=== PATIENT | male | born 1950 | race Caucasian/White ===

== ENCOUNTER 2019-10-03 00:30 | Day surgery (SDC) | payer MEDICARE, SELFPAY ==
[2019-10-03 08:10] VITALS: BP 168/106; PULSE 90; RESP 16; TEMP 36.5; O2SAT 94
[2019-10-03 08:36] VITALS: BMI 26.9
--- NOTE | 2019-10-03 10:18 | WPDGICN ---
Assessment and Plan Additional Plan This is a 69-year-old white male patient I am asked to see with G-tube malfunction. Patient has a history of PEG tube placed initially after a stroke in 2016. At home the plastic port of the G-tube has become deteriorated and begun to fall apart presents today for repair replacement of his G-tube. Past medical history is significant for pulmonary embolus. He subsequently had a clot. Medications at home include baclofen atorvastatin, amlodipine, aspirin, fluoxetine, Colace, insulin, gabapentin, tramadol, and Phenergan. Family history is noncontributory. Patient reports allergies to sulfa Medications. Physical exam reveals that he requires a wheelchair. He has left hemiparesis. HEENT exam reveals a deformity on the right forehead. He is anicteric. Lungs are clear to auscultation and percussion. Heart is without murmur or extra sounds. Abdomen is soft nontender with no hepatosplenomegaly. Peg tube in left upper quadrant reveals the G-tube is deteriorated and is no longer functioning. Impression 1. G-tube malfunction. For this reason old G-tube was removed. Replaced with a 16 Lithuanian replacement PEG tube without difficulty. Gastric contents were aspirated from the G-tube and appears to be in appropriate position. Plan is with the new G-tube replacement to resume tube feedings. Patient is advised to replace G-tube under 1 year basis. Or as needed. GI Consult Note Consult date/time: 10/03/19 10:18 HPI: Alberto Gilman is a 69 year old male Meds Home Medications and Allergies Home Medications Medication Instructions Recorded Confirmed Type acetaminophen [Tylenol] 325 mg PO ONCE PRN 10/03/19 10/03/19 History amlodipine 10 mg PO DAILY 10/03/19 10/03/19 History ascorbic acid (vitamin C) [Vitamin 1,000 mg PO Q12H 10/03/19 10/03/19 History C] aspirin 325 mg PO DAILY 10/03/19 10/03/19 History atorvastatin 80 mg PO DAILY 10/03/19 10/03/19 History baclofen 10 mg PO TID 10/03/19 10/03/19 History chlorpheniramine-acetaminophen 1 tablet PO Q4-6H PRN 10/03/19 10/03/19 History [Coricidin HBP Cold and Flu] cholecalciferol (vitamin D3) 50 mcg PO DAILY 10/03/19 10/03/19 History [Vitamin D3] coQ10 (ubiquinol) 200 mg PO DAILY 10/03/19 10/03/19 History docusate sodium [Stool Softener] 100 mg PO BID 10/03/19 10/03/19 History escitalopram oxalate 10 mg PO DAILY 10/03/19 10/03/19 History gabapentin 300 mg PO HS 10/03/19 10/03/19 History insulin degludec [Tresiba 200 unit SUBCUT DAILY 10/03/19 10/03/19 History FlexTouch U-200] levetiracetam 1,000 mg PO BID 10/03/19 10/03/19 History loratadine 10 mg PO DAILY 10/03/19 10/03/19 History losartan 100 mg PO DAILY 10/03/19 10/03/19 History magnesium 200 mg PO DAILY 10/03/19 10/03/19 History polyethylene glycol 3350 17 g FEEDING TUBE DAILY 10/03/19 10/03/19 History promethazine 12.5 mg FEEDING TUBE PRN PRN 10/03/19 10/03/19 History tramadol 50 mg PO PRN PRN 10/03/19 10/03/19 History Allergies Allergy/AdvReac Type Severity Reaction Status Date / Time sulfamethoxazole Allergy Intermediate RASH Verified 10/03/19 09:57 melon Allergy Mild swelling Verified 10/03/19 09:57 Pecan Allergy Mild swelling Uncoded 10/03/19 09:57 nutiifac zx AdvReac Mild nausea? Uncoded 10/03/19 09:57 Vital Signs Vital Signs - 24 hr 10/03/19 08:10 Temperature 36.5 C Pulse Rate 90 Respiratory Rate 16 Blood Pressure 168/106 H Pulse Oximetry 94
--- NOTE | 2019-10-10 10:11 | PM.OP ---
Procedure Note - Brief Procedure Note - Brief Date of procedure: 10/10/19 Pre-op diagnosis: Malfunctioning G-Tube Surgeon: Lakhwinder Vera MD 09/28/2019 date of procedure. Procedure change PEG tube. Preop diagnosis malfunctioning G-tube. Postprocedure diagnosis G-tube replaced. Family reports G-tube deteriorated no longer functioning plastic is falling off the tip of the PEG tube. Abdominal exam benign and unremarkable. Peg tube site healing ?adequately. Old PEG tube internal balloon is deflated. Old PEG tube was withdrawn from the abdomen. A new 16 [place]alan replacement PEG tube is placed through the gastrocutaneous fistula without difficulty. Gastric contents aspirated. To confirm in appropriate position. Plan is to resume tube feedings in discharge. Patient to follow up with primary care service. Anticipate follow-up PEG tube in an annual basis unless it deteriorates sooner than this.
== END 2019-10-03 00:31 | disposition home or self-care (01) ==
PROVIDERS: PCP Internal Medicine; Visit Provider Internal Medicine Gastroenterology
PROC: 0DH63UZ Insertion of Feeding Device into Stomach, Percutaneous Approach (ICD-10-PCS; CPT 43246; principal; 2019-10-03 09:30)
DX: K94.23 Gastrostomy malfunction (principal)
CPT/HCPCS: 99211; G0463

== ENCOUNTER 2020-10-05 10:34 | Day surgery (SDC) | payer MEDICARE, SELFPAY ==
[2020-10-05 10:45] VITALS: BP 158/96; PULSE 99; RESP 17; TEMP 36; O2SAT 99
--- NOTE | 2020-10-05 11:04 | ED.GENADULT ---
HPI - General Adult General Chief complaint: Unspecified Stated complaint: feeding tube came out Time Seen by Provider: 10/05/20 10:54 Source: patient Mode of arrival: wheelchair Limitations: no limitations History of Present Illness HPI narrative: A 70-year-old male comes into the emergency department today with complaints of a dislodged G-tube. Patient reports a history of a stroke leaving him unable to swallow. Patient had to have the G-tube placed for this. He notes that at about 10 AM this morning it came dislodged. His states that the bubble that is usually present deflated and this is how it came out. Related Data Home Medications Medication Instructions Recorded Confirmed acetaminophen [Tylenol] 325 mg PO ONCE PRN 10/03/19 10/03/19 amlodipine 10 mg PO DAILY 10/03/19 10/03/19 ascorbic acid (vitamin C) [Vitamin 1,000 mg PO Q12H 10/03/19 10/03/19 C] aspirin 325 mg PO DAILY 10/03/19 10/03/19 atorvastatin 80 mg PO DAILY 10/03/19 10/03/19 baclofen 10 mg PO TID 10/03/19 10/03/19 chlorpheniramine-acetaminophen 1 tablet PO Q4-6H PRN 10/03/19 10/03/19 [Coricidin HBP Cold and Flu] cholecalciferol (vitamin D3) 50 mcg PO DAILY 10/03/19 10/03/19 [Vitamin D3] coQ10 (ubiquinol) 200 mg PO DAILY 10/03/19 10/03/19 docusate sodium [Stool Softener] 100 mg PO BID 10/03/19 10/03/19 escitalopram oxalate 10 mg PO DAILY 10/03/19 10/03/19 gabapentin 300 mg PO HS 10/03/19 10/03/19 insulin degludec [Tresiba 200 unit SUBCUT DAILY 10/03/19 10/03/19 FlexTouch U-200] levetiracetam 1,000 mg PO BID 10/03/19 10/03/19 loratadine 10 mg PO DAILY 10/03/19 10/03/19 losartan 100 mg PO DAILY 10/03/19 10/03/19 magnesium 200 mg PO DAILY 10/03/19 10/03/19 polyethylene glycol 3350 17 g FEEDING TUBE DAILY 10/03/19 10/03/19 promethazine 12.5 mg FEEDING TUBE PRN PRN 10/03/19 10/03/19 tramadol 50 mg PO PRN PRN 10/03/19 10/03/19 Allergies Allergy/AdvReac Type Severity Reaction Status Date / Time sulfamethoxazole Allergy Intermediate RASH Verified 10/05/20 12:21 melon Allergy Mild swelling Verified 10/05/20 12:21 Pecan Allergy Mild swelling Uncoded 10/05/20 12:21 nutiifac zx AdvReac Mild nausea? Uncoded 10/05/20 12:21 Review of Systems Review of Systems: Narrative: CONSTITUTIONAL: Denies fever, chills, or sweats. EYES: Denies visual changes, redness, or discharge. ENT: Denies rhinorrhea, congestion, sore throat, or otalgia. CARDIOVASCULAR: Denies chest pain, palpitations, or edema. RESPIRATORY: Denies cough or dyspnea. GASTROINTESTINAL: Denies abdominal pain, nausea, vomiting, or diarrhea. GENITOURINARY: Denies dysuria or hematuria. SKIN: Denies rash or itching. MUSCULOSKELETAL: Denies back pain, joint pain, or myalgia. NEUROLOGIC: Denies headache, numbness, dizziness, or weakness. PSYCHIATRIC: Denies anxiety or depression. [facility] Social History Social History Gender identity (if verbalized by the patient): Male Exam Narrative: Exam Narrative: GENERAL: Well-appearing, well-nourished, and in no acute distress. HEAD: Normocephalic, atraumatic. EYES: PERRLA and EOMI. ENT: Nares clear, no rhinorrhea or epistaxis. Mucous membranes moist. NECK: Supple. No adenopathy or masses. No carotid bruits or JVD CHEST: Clear to auscultation. No respiratory distress. No wheezes rales or rhonchi HEART: Regular rate and rhythm. No murmur heard. Normal peripheral pulses. ABDOMEN: Soft, nontender, nondistended, normal active bowel sounds. EXTREMITIES: Normal range of motion. No edema. SKIN: Warm, dry, no rash. NEURO: No focal deficits. Alert and oriented x3. PSYCH: Normal mood and affect. Course Reevaluation(s) Reevaluation #1: Attempted placement of G-tube. Unfortunately 3 attempts were unsuccessful. I was able to get the G-tube in approximately 2 cm but it would not go all the way in. For fear of creating a false lumen I did not want to push any harder. We will consult with general surgery. Time
[2020-10-05] MEDS: LIDOCAINE HCL 2% GEL UROJET 10 ML PKG MUCOUS MEM (11:32)
[2020-10-05 12:42] VITALS: BMI 27.4
[2020-10-05 12:49] LABS: Glucose Point of Care 361 (65-105)
--- NOTE | 2020-10-05 12:50 | WPDANESEPPF ---
Anes - Initial Pre Proc Eval Procedure: Operation Date: 10/05/20 13:00 Proposed Procedures p Esophagogastroduodenoscopy - Skyler Del Toro MD s Percutaneous Endoscopic Gastrostomy - Skyler Del Toro MD Date/Time: 10/05/20 12:50 Pre Op Diagnosis: feeding tube came out Patient Data Age: 70 Gender: M Height: 6 ft 2 in Weight: 97 kg Last Vital Signs Temp 36.0 C L 10/05/20 10:45 Pulse 99 10/05/20 10:45 Resp 17 10/05/20 10:45 BP 158/96 H 10/05/20 10:45 Pulse Ox 99 10/05/20 10:45 Allergies Allergy/AdvReac Type Severity Reaction Status Date / Time sulfamethoxazole Allergy Intermediate RASH Verified 10/05/20 12:21 melon Allergy Mild swelling Verified 10/05/20 12:21 Pecan Allergy Mild swelling Uncoded 10/05/20 12:21 nutiifac zx AdvReac Mild nausea? Uncoded 10/05/20 12:21 Home Medications Medication Instructions Recorded Confirmed Type acetaminophen [Tylenol] 325 mg PO ONCE PRN 10/03/19 10/03/19 History amlodipine 10 mg PO DAILY 10/03/19 10/03/19 History ascorbic acid (vitamin C) [Vitamin 1,000 mg PO Q12H 10/03/19 10/03/19 History C] aspirin 325 mg PO DAILY 10/03/19 10/03/19 History atorvastatin 80 mg PO DAILY 10/03/19 10/03/19 History baclofen 10 mg PO TID 10/03/19 10/03/19 History cholecalciferol (vitamin D3) 50 mcg PO DAILY 10/03/19 10/03/19 History [Vitamin D3] coQ10 (ubiquinol) 200 mg PO DAILY 10/03/19 10/03/19 History docusate sodium [Stool Softener] 100 mg PO BID 10/03/19 10/03/19 History escitalopram oxalate 10 mg PO DAILY 10/03/19 10/03/19 History gabapentin 300 mg PO HS 10/03/19 10/03/19 History insulin degludec [Tresiba 200 unit SUBCUT DAILY 10/03/19 10/03/19 History FlexTouch U-200] levetiracetam 1,000 mg PO BID 10/03/19 10/03/19 History loratadine 10 mg PO DAILY 10/03/19 10/03/19 History losartan 100 mg PO DAILY 10/03/19 10/03/19 History magnesium 200 mg PO DAILY 10/03/19 10/03/19 History polyethylene glycol 3350 17 g FEEDING TUBE DAILY 10/03/19 10/03/19 History promethazine 12.5 mg FEEDING TUBE PRN PRN 10/03/19 10/03/19 History tramadol 50 mg PO PRN PRN 10/03/19 10/03/19 History insulin aspart U-100 [Novolog 40 unit SUBCUT TID 10/05/20 10/05/20 History Flexpen U-100 Insulin] Laboratory Tests 10/05/20 12:46 POC Capillary Glucose 361 mg/dl H mg/dl (65-105) Patient hx anesthesia problems: none Family hx anesthesia problems: none [facility] Past Medical History Medical History (Updated 10/05/20 @ 12:51 by Marlo Celis MD) Diabetes History of CVA (cerebrovascular accident) HTN (hypertension) Seizures Surgical History Surgical History (Updated 10/05/20 @ 12:51 by Marlo Celis MD) H/O craniotomy Social History Social History Gender identity (if verbalized by the patient): Male Anes - Eval Final PreProcedure Day of Procedure 10/05/20 12:50 Patient weight: overweight Heart: regular rate and rhythm Lungs: clear to auscultation Airway: Mallampati scale class II Neurological: alert and oriented Last oral intake: >/= 8 hours ASA classification: III Emergent: no Anesthetic plan: proceed Anesthesia type and monitoring: general GIVS and standard monitoring Informed Consent: The patient's anesthetic plan and its attendant risks and benefits were discussed with the patient/family/POA. Questions were solicited and answers provided to the satisfaction of the patient/family/POA.
[2020-10-05] MEDS: LACTATED RINGERS 1,000 ML 150 ML IV CONT (13:00)
--- NOTE | 2020-10-05 14:01 | PM.HPGS ---
History of Present Illness History of Present Illness Consent: Risks, benefits, and alternatives have been discussed and questions answered. Patient agrees to proceed with procedure. Chief complaint: feeding tube came out Narrative: Alberto Gilman is a 70 year old male who came to ER after dislodged G-tube which was replaced several months ago by Dr Vera (16 Fr size). Patient reports a history of a stroke leaving him unable to swallow. He says that can swallow pills. Review of Systems Constitutional: Constitutional: Denies headache(s) and Denies weakness Eyes: Eyes: Denies blurry vision ENT: Reports Normal hearing present, Denies headache(s) and Denies neck pain Cardiovascular: Cardiovascular: Denies chest pain and Denies dyspnea Respiratory: Respiratory: Denies dyspnea Gastrointestinal: Gastrointestinal: Reports no additional gastrointestinal complaints Genitourinary: Genitourinary: Denies dysuria Musculoskeletal: Musculoskeletal: Denies neck pain Integumentary/Breasts: Skin/Breast: Denies dry skin Neurologic: Reports Normal hearing present, Denies headache(s) and Denies weakness Psychiatric: Psychiatric: Denies anxiety Endocrine: Endocrine: Denies change in body appearance Hematologic/Lymphatic: Hematologic/Lymphatic: Denies easy bleeding Allergic/Immunologic: Allergic/Immunologic: Denies urticaria PMFSH Past Medical History Medical History (Updated 10/05/20 @ 12:51 by Marlo Celis MD) Diabetes History of CVA (cerebrovascular accident) HTN (hypertension) Seizures Surgical History Surgical History (Updated 10/05/20 @ 12:51 by Marlo Celis MD) H/O craniotomy Social History Social History Gender identity (if verbalized by the patient): Male Meds Home Medications and Allergies Home Medications Medication Instructions Recorded Confirmed Type acetaminophen [Tylenol] 325 mg PO ONCE PRN 10/03/19 10/05/20 History amlodipine 10 mg PO DAILY 10/03/19 10/05/20 History ascorbic acid (vitamin C) [Vitamin 1,000 mg PO Q12H 10/03/19 10/05/20 History C] aspirin 325 mg PO DAILY 10/03/19 10/05/20 History atorvastatin 80 mg PO DAILY 10/03/19 10/05/20 History baclofen 10 mg PO TID 10/03/19 10/05/20 History cholecalciferol (vitamin D3) 50 mcg PO DAILY 10/03/19 10/05/20 History [Vitamin D3] coQ10 (ubiquinol) 200 mg PO DAILY 10/03/19 10/05/20 History docusate sodium [Stool Softener] 100 mg PO BID 10/03/19 10/05/20 History escitalopram oxalate 10 mg PO DAILY 10/03/19 10/05/20 History gabapentin 300 mg PO HS 10/03/19 10/05/20 History insulin degludec [Tresiba 200 unit SUBCUT DAILY 10/03/19 10/05/20 History FlexTouch U-200] levetiracetam 1,000 mg PO BID 10/03/19 10/05/20 History loratadine 10 mg PO DAILY 10/03/19 10/05/20 History losartan 100 mg PO DAILY 10/03/19 10/05/20 History magnesium 200 mg PO DAILY 10/03/19 10/05/20 History polyethylene glycol 3350 17 g FEEDING TUBE DAILY 10/03/19 10/05/20 History promethazine 12.5 mg FEEDING TUBE PRN PRN 10/03/19 10/05/20 History tramadol 50 mg PO PRN PRN 10/03/19 10/05/20 History insulin aspart U-100 [Novolog 40 unit SUBCUT TID 10/05/20 10/05/20 History Flexpen U-100 Insulin] Allergies Allergy/AdvReac Type Severity Reaction Status Date / Time sulfamethoxazole Allergy Intermediate RASH Verified 10/05/20 12:21 melon Allergy Mild swelling Verified 10/05/20 12:21 Pecan Allergy Mild swelling Uncoded 10/05/20 12:21 nutiifac zx AdvReac Mild nausea? Uncoded 10/05/20 12:21 Vital Signs Vital Signs - 24 hr 10/05/20 10:45 Temperature 96.8 F L Pulse Rate 99 Respiratory Rate 17 Blood Pressure 158/96 H Pulse Oximetry 99 Exam Const: General: comfortable and no acute distress HENMT: General nose exam: Normal nares present Eyes: General: appearance normal, both eyes and all related structures Neck: Neck: no JVD Resp: Auscultation: clear to auscultation bilaterally Cardio:
[2020-10-05] MEDS: BENZOCAINE (*SP) 60 ML SPRAY CAN (HURRICAINE) 1 SPRAY MUCOUS MEM (14:10)
[2020-10-05 14:25] VITALS: BP 125/76; PULSE 79; RESP 17; O2SAT 92
[2020-10-05 14:35] VITALS: BP 115/70; PULSE 77; RESP 18; O2SAT 91
[2020-10-05 14:45] VITALS: BP 150/86; PULSE 81; RESP 18; O2SAT 93
== END 2020-10-05 15:07 | disposition home or self-care (01) ==
LOC: ANHED 12:31 → ANHSURGERY 12:55
PROVIDERS: Emergency Provider Emergency Medicine; PCP Internal Medicine; Visit Provider Internal Medicine Gastroenterology
PROC: 0DJ08ZZ Inspection of Upper Intestinal Tract, Via Natural or Artificial Opening Endoscopic (ICD-10-PCS; CPT 43235; principal; 2020-10-05 13:00)
PROC: 0DH63UZ Insertion of Feeding Device into Stomach, Percutaneous Approach (ICD-10-PCS; CPT 43246; 2020-10-05 13:00)
DX: T85.528A Displacement of other gastrointestinal prosthetic devices, implants and grafts, initial encounter (principal); I69.391 Dysphagia following cerebral infarction; R13.10 Dysphagia, unspecified; E11.9 Type 2 diabetes mellitus without complications; I10 Essential (primary) hypertension; G40.909 Epilepsy, unspecified, not intractable, without status epilepticus; Z79.4 Long term (current) use of insulin; Z79.82 Long term (current) use of aspirin
CPT/HCPCS: 43246; 82948; 99285; J0690; J2704; J7120

== ENCOUNTER 2021-08-05 02:31 | Day surgery (SDC) | payer MEDICARE, SELFPAY ==
[2021-07-31 12:23] VITALS: BMI 28.3
--- NOTE | 2021-08-05 10:58 | WPDANESEPPF ---
Anes - Initial Pre Proc Eval Procedure: Operation Date: 08/05/21 11:30 Proposed Procedures p Removal & Replacement of G-Tube - Lakhwinder Vera MD Date/Time: 08/05/21 10:58 Surgeon: Lakhwinder Vera MD Pre Op Diagnosis: malfunctioning g tube Patient Data Age: 71 Gender: M Height: 1.88 m Weight: 100 kg Allergies Allergy/AdvReac Type Severity Reaction Status Date / Time sulfamethoxazole Allergy Intermediate RASH Verified 08/05/21 10:39 melon Allergy Mild swelling Verified 08/05/21 10:39 Pecan Allergy Mild swelling Uncoded 10/05/20 12:21 nutiifac zx AdvReac Mild nausea? Uncoded 10/05/20 12:21 Home Medications Medication Instructions Recorded Confirmed Type acetaminophen [Tylenol] 325 mg PO ONCE PRN 10/03/19 07/31/21 History amlodipine 10 mg PO DAILY 10/03/19 07/31/21 History ascorbic acid (vitamin C) [Vitamin 1,000 mg PO Q12H 10/03/19 07/31/21 History C] aspirin 325 mg PO DAILY 10/03/19 07/31/21 History atorvastatin 80 mg PO DAILY 10/03/19 07/31/21 History baclofen 10 mg PO TID 10/03/19 07/31/21 History cholecalciferol (vitamin D3) 100 mcg PO DAILY 10/03/19 07/31/21 History [Vitamin D3] docusate sodium [Stool Softener] 100 mg PO BID 10/03/19 07/31/21 History escitalopram oxalate 10 mg PO DAILY 10/03/19 07/31/21 History gabapentin 300 mg PO HS 10/03/19 07/31/21 History insulin degludec [Tresiba 56 unit SUBCUT HS 10/03/19 07/31/21 History FlexTouch U-200] levetiracetam 1,000 mg PO BID 10/03/19 07/31/21 History loratadine 10 mg PO DAILY 10/03/19 07/31/21 History losartan 100 mg PO DAILY 10/03/19 07/31/21 History polyethylene glycol 3350 17 g FEEDING TUBE DAILY 10/03/19 07/31/21 History promethazine 12.5 mg FEEDING TUBE PRN PRN 10/03/19 07/31/21 History tramadol 50 mg PO PRN PRN 10/03/19 07/31/21 History insulin aspart U-100 [Novolog unit SUBCUT TID 10/05/20 10/05/20 History Flexpen U-100 Insulin] albuterol sulfate [Ventolin HFA] 2 puff INHALATION PRN PRN 07/31/21 07/31/21 History coQ10 (ubiquinol) 100 mg PO DAILY 07/31/21 07/31/21 History dextromethorphan-guaifenesin 2 tab-cap PO HS 07/31/21 07/31/21 History [Coricidin HBP Chest Cortes-Cough] magnesium 200 mg PO BID 07/31/21 07/31/21 History repaglinide 1 mg PO TIDWMEAL 07/31/21 07/31/21 History Patient hx anesthesia problems: none Family hx anesthesia problems: none Results Review: All pre-operative results and documents have been reviewed as part of the pre-operative evaluation. [facility] Past Medical History Medical History (Updated 08/05/21 @ 11:04 by Lakhwinder Vera MD) Anxiety Asthma Diabetes DVT (deep venous thrombosis) History of CVA (cerebrovascular accident) HTN (hypertension) Seizures Surgical History Surgical History (Updated 08/05/21 @ 11:04 by Lakhwinder Vera MD) H/O craniotomy Social History Social History Smoking status: Never smoker Alcohol intake: former Substance use: never Substance use type: does not use Living arrangements: with family Gender identity (if verbalized by the patient): Male Spiritual care concerns: No Anes - Eval Final PreProcedure Day of Procedure 08/05/21 10:58 Patient weight: overweight Heart: regular rate and rhythm Lungs: clear to auscultation and normal air movement Airway: Mallampati scale class II Neurological: alert and oriented Last oral intake: >/= 8 hours ASA classification: III Emergent: no Anesthetic plan: proceed Anesthesia type and monitoring: general GIVS and standard monitoring Results Review: All pre-operative results and documents have been reviewed as part of the pre-operative evaluation. Informed Consent: The patient's anesthetic plan and its attendant risks and benefits were discussed with the patient/family/POA. Questions were solicited and answers provided to the satisfaction of the patient/family/POA.
--- NOTE | 2021-08-05 11:02 | WPDGICN ---
Assessment and Plan Assessment and plan (1) PEG (percutaneous endoscopic gastrostomy) status: Code(s): Z93.1 - Gastrostomy status Status: Acute (2) PEG (percutaneous endoscopic gastrostomy) adjustment/replacement/removal: Code(s): Z43.1 - Encounter for attention to gastrostomy Status: Acute Assessment and Plan: Patient has a history of his CVA now with PEG deterioration. Attempts at removal with traction were not successful therefore will plan EGD and PEG replacement today. PEG itself is deteriorated and he needs replacement. GI Consult Note Consult date/time: 08/05/21 11:02 HPI: Alberto Gilman is a 71 year old male Presents for replacement of PEG tube. Patient has initial G-tube after a CVA in 2015. September 2019 had G-tube replaced. This became dislodged and required endoscopic replacement in September of 2020. Patient's G-tube has become somewhat deteriorated in the intervening time. He presents today for G-tube replacement. Patient does have a prior history of CVA. Review of Systems Review of Systems: All systems reviewed & are unremarkable except as noted in HPI and below PMFSH Past Medical History Medical History (Updated 08/05/21 @ 11:04 by Lakhwinder Vera MD) Anxiety Asthma Diabetes DVT (deep venous thrombosis) History of CVA (cerebrovascular accident) HTN (hypertension) Seizures Surgical History Surgical History (Updated 08/05/21 @ 11:04 by Lakhwinder Vera MD) H/O craniotomy Social History Social History Smoking status: Never smoker Alcohol intake: former Substance use: never Substance use type: does not use Living arrangements: with family Gender identity (if verbalized by the patient): Male Spiritual care concerns: No Meds Home Medications and Allergies Home Medications Medication Instructions Recorded Confirmed Type acetaminophen [Tylenol] 325 mg PO ONCE PRN 10/03/19 07/31/21 History amlodipine 10 mg PO DAILY 10/03/19 07/31/21 History ascorbic acid (vitamin C) [Vitamin 1,000 mg PO Q12H 10/03/19 07/31/21 History C] aspirin 325 mg PO DAILY 10/03/19 07/31/21 History atorvastatin 80 mg PO DAILY 10/03/19 07/31/21 History baclofen 10 mg PO TID 10/03/19 07/31/21 History cholecalciferol (vitamin D3) 100 mcg PO DAILY 10/03/19 07/31/21 History [Vitamin D3] docusate sodium [Stool Softener] 100 mg PO BID 10/03/19 07/31/21 History escitalopram oxalate 10 mg PO DAILY 10/03/19 07/31/21 History gabapentin 300 mg PO HS 10/03/19 07/31/21 History insulin degludec [Tresiba 56 unit SUBCUT HS 10/03/19 07/31/21 History FlexTouch U-200] levetiracetam 1,000 mg PO BID 10/03/19 07/31/21 History loratadine 10 mg PO DAILY 10/03/19 07/31/21 History losartan 100 mg PO DAILY 10/03/19 07/31/21 History polyethylene glycol 3350 17 g FEEDING TUBE DAILY 10/03/19 07/31/21 History promethazine 12.5 mg FEEDING TUBE PRN PRN 10/03/19 07/31/21 History tramadol 50 mg PO PRN PRN 10/03/19 07/31/21 History insulin aspart U-100 [Novolog unit SUBCUT TID 10/05/20 10/05/20 History Flexpen U-100 Insulin] albuterol sulfate [Ventolin HFA] 2 puff INHALATION PRN PRN 07/31/21 07/31/21 History coQ10 (ubiquinol) 100 mg PO DAILY 07/31/21 07/31/21 History dextromethorphan-guaifenesin 2 tab-cap PO HS 07/31/21 07/31/21 History [Coricidin HBP Chest Cortes-Cough] magnesium 200 mg PO BID 07/31/21 07/31/21 History repaglinide 1 mg PO TIDWMEAL 07/31/21 07/31/21 History Allergies Allergy/AdvReac Type Severity Reaction Status Date / Time sulfamethoxazole Allergy Intermediate RASH Verified 08/05/21 10:39 melon Allergy Mild swelling Verified 08/05/21 10:39 Pecan Allergy Mild swelling Uncoded 10/05/20 12:21 nutiifac zx AdvReac Mild nausea? Uncoded 10/05/20 12:21 Exam Narrative: Physical exam reveals patient to require a wheelchair for ambulation. HEENT exam reveals no icterus. Lungs are clear. Heart without murmur. Abdom
[2021-08-05 11:12] LABS: Glucose Point of Care 210 mg/dl (65-105)
[2021-08-05] MEDS: LACTATED RINGERS 1,000 ML 150 ML IV CONT (11:21)
[2021-08-05 11:52] VITALS: BP 153/88; PULSE 88; RESP 27; O2SAT 98
[2021-08-05 12:02] VITALS: BP 128/82; PULSE 87; RESP 22; O2SAT 94
[2021-08-05 12:12] VITALS: BP 142/87; PULSE 87; RESP 22; O2SAT 94
--- NOTE | 2021-08-05 12:36 | SUR.PHASEII ---
Surgical site clean, dry, and intact with scant amount of bloody drainage.
[2021-08-06 07:18] LABS: Glucose Point of Care 197 mg/dl (65-105)
== END 2021-08-05 12:37 | disposition home or self-care (01) ==
PROVIDERS: PCP Internal Medicine; Visit Provider Internal Medicine Gastroenterology
PROC: 0DH63UZ Insertion of Feeding Device into Stomach, Percutaneous Approach (ICD-10-PCS; CPT 43246; principal; 2021-08-05 11:30)
DX: Z43.1 Encounter for attention to gastrostomy (principal); J45.909 Unspecified asthma, uncomplicated; E11.9 Type 2 diabetes mellitus without complications; I10 Essential (primary) hypertension; F41.9 Anxiety disorder, unspecified; Z86.73 Personal history of transient ischemic attack (TIA), and cerebral infarction without residual deficits; Z86.718 Personal history of other venous thrombosis and embolism; Z79.4 Long term (current) use of insulin; Z79.82 Long term (current) use of aspirin
CPT/HCPCS: 43246; 82948; J2704; J7120